=== PATIENT | male | born 1970 | race Caucasian/White ===

== ENCOUNTER → 2016-11-22 | Day surgery (SDC) | payer OTHER ==
[~2016-11-22] VITALS: Ht 161.3 cm; Wt 152.4 kg
[~2016-11-22] MED LIST: ADVIL200 MG PO; EXFORGE HCT 101 EAC2 PO; LOPRESSOR50 MG PO; PERCOCET 5-3251 EACH PO; THERA-VITE W/ B1 TAB PO
--- NOTE | ~2016-11-22 | OR ---
PATIENT'S NAME: MEL BRAUN [facility] AGE: 46 Y [address] ROOM: [place], [place] [address] LOCATION: [facility] [place] ADMIT DATE: 11/22/2016 OR/Procedure Report DISCHARGE DATE: FAMILY PHYSICIAN: Jean Hines ATTENDING PHYSICIAN: Elijah Jewell SURGEON: Elijah Jewell MD [employer]: DATE OF PROCEDURE: 11/22/2016 PREOPERATIVE DIAGNOSIS: Recurrent ventral hernia. POSTOPERATIVE DIAGNOSIS: Recurrent ventral hernia. PROCEDURE: 1. Robotic ventral hernia repair with mesh placement. 2. Explantation of previous mesh. 3. Excision of sebaceous cyst. FINDINGS: The patient had a main defect of approximately 8 cm. There were two other defects present just cephalad to this. In the left mid abdomen, the patient had complained of a sebaceous cyst as well. We ultimately excised this at the conclusion of the case. ESTIMATED BLOOD LOSS: 20 mL. COMPLICATIONS: None. INDICATIONS: The patient is a 46-year-old male, who presented with a very large ventral hernia. This was recurrent. He had previous mesh repair. We discussed his high-risk, high recurrence rates, the risks, benefits, and alternatives of excision as well as excision of the sebaceous cyst and he wished to proceed. DESCRIPTION OF PROCEDURE: The patient was taken to the operating room. He was placed supine. He was given IV sedation. Subsequently intubated. His abdomen was prepped with ChloraPrep and sterilely draped. Veress needle was inserted in the left upper quadrant followed by insertion of a trocar near this area. The camera was inserted. There was no injury from initial trocar placement. Two more trocars were positioned, one in the left mid abdomen and one in the left lower quadrant. These were both inserted under direct visualization. The left lower quadrant port was a 12 mm trocar. The robot was then docked. The operative field was targeted. A scissors and a grasper were inserted. Using both blunt dissection as well as electrocautery, we were able to reduce the contents of the hernia. This was a very large hernia sac. The hernia sac itself was greater than 20 cm in size. We could not easily PATIENT'S NAME: MEL BRAUN [facility] AGE: 46 Y [address] ROOM: [place], [place] [address] LOCATION: [facility] [place] ADMIT DATE: 11/22/2016 OR/Procedure Report DISCHARGE DATE: FAMILY PHYSICIAN: Jean Hines ATTENDING PHYSICIAN: Elijah Jewell reduce this hernia sac as it was nearly adherent to skin. In reducing the contents of the hernia, there was previous mesh present in this area. A portion of this was loose with minimal attachment to the abdominal wall. This mesh was excised. The hernia defects were all inferior to this previously placed mesh. There were sutures in the wall of this as well. The largest portion of the defect was approximately 8 cm with two other small defects just superior to this. There was suture closure of his previous hernia defect as well, which remained intact. The old mesh was brought out through the 12 mm trocar. Robotically using a # permanent V-Loc suture, we then closed the fascial defects in a running fashion. Once the defects were closed, we measured the size of the defect and selected a 20 cm x [address] hernia mesh. This was inserted through the 12 mm trocar and rolled, this was placed against the abdominal wall and sewn circumferentially around the edges of the mesh using. 2-0 V-Loc suture. This appeared to cover the defect and lie smoothly against the abdominal wall. Once this was completed, hemostasis was checked, had been obtained. The 12 mm trocar was removed and an Endo Close was used with 0 Vicryl suture to close the 12 mm port site. Pneumoperitoneum was released. The closure of the hernia defect was air tight and we did have to evacuate the air from the hernia sac using a Veress needle and a small stab incision. The skin edges were all closed with 4-0 Monocryl suture. Next, the sebaceous cyst was attended to, this was on the left abdominal wall as well. An incision was created overlying this, it was dissected around circumferentially. It was approximately 2 cm was consistent with sebaceous cyst. The entire capsule was able to be removed. The skin edges of this were then closed with a 4-0 Monocryl suture. Steri-Strips and sterile dressings were placed as well as compression dressing over the abdominal wound. The patient tolerated the procedure well. ELIJAH MD KRYSTA TELLEZ/modl /[id number] d: 11/22/162207 t: 11/29/16 112, OPERATIVE SUMMARY
[2016-11-22 07:06] LABS: BASOPHIL # 0.1 K/uL (0.0-0.2); BASOPHIL % 0.5 %; EOSINOPHIL # 0.7 K/uL (0.0-0.5); EOSINOPHIL % 5.3 %; HEMATOCRIT 46.4 % (37.0-53.0); HEMOGLOBIN 15.5 g/dL (12.0-17.0); IMMATURE GRANULOCYTE # 0.1 K/uL (0.0-0.3); IMMATURE GRANULOCYTE % 0.6 %; LYMPHOCYTE # 2.2 K/uL (0.8-4.0); LYMPHOCYTE % 17.1 %; MCH 30.3 pg (27.0-34.0); MCHC 33.4 gm/dL (32.0-36.5); MCV 90.6 fl (83.0-98.0); MONOCYTE # 0.8 K/uL (0.0-1.0); MONOCYTE % 5.9 %; MPV 10.8 fl (9.4-12.4); NEUTROPHIL % 70.6 %; NRBC % 0 /100WBC (0-0.00); PLATELET COUNT 332 K/uL (150-450); RBC 5.12 M/uL (4.00-6.00); RDW-CV 12.8 % (11.9-14.6); WBC 12.8 K/uL (4.0-11.0)
[2016-11-22 07:25] LABS: ALBUMIN 3.5 gm/dL (3.5-5.0); ALK PHOS 81 IU/L (33-138); ALT 27 IU/L (12-78); ANION GAP 12.6 (10.0-19.0); AST 14 IU/L (10-40); BLOOD UREA NITROGEN 12 mg/dL (6-24); CALCIUM 8.5 mg/dL (8.5-10.5); CHLORIDE 107 mMol/L (96-110); CO2 27 mMol/L (22-32); ESTIMATED GFR (MDRD EQUATION) > 60; POTASSIUM 3.6 mMol/L (3.7-5.1); SODIUM 143 mMol/L (135-145); TOTAL BILIRUBIN 0.6 mg/dL (0.0-1.5); TOTAL PROTEIN 6.9 g/dL (6.0-8.4)
--- NOTE | 2016-11-22 15:41 | NUR ---
1430 DR OLMOS IN TO SEE THE PT AND TALK WITH PT'S FAMILY. Reggie DOBBINS RN INFORMED DR FINN OF THE PT'S CONTINUAL NEED FOR 02 TO KEEP 02 SAO2 >90 EVEN WITH PT UP IN RECLINER, AMBULATED IN HARDEN, ICE CHIPS, COUGH AND DEEP BREATH. DR PENG INFORMS THE FAMILY THAT WE WILL CONTINUE TO OBSERVE FOR A FEW MORE HOURS. DR ROBERT ALSO HERE AND TALKED WITH PT AND DR FINN AND AWARE OF THE CONTINUAL NEED FOR O2 1530 PT PLACED ON RA AND SAO2 IMMEDIATELY DROPS TO 86-88%. INFORMED OT THAT HE MUST BE ABLE TO KEEP HIS SAO2>90 ON ROOM AIR. ENCOURAGED PT TO MOVE AROUND, COUGH, AND TAKE DEEP BREATHS AND TO USE THE INCENTIVE SPIROMETER FREQ TO HELP KEEP HIS SAO2 >90. PT IS VERY COMPILENT AND IS FREQ USING INCENTIVE SPIROMETER AND TAKING DEEP BREATH AND COUGHS. PT REPORTS HIS PAIN A 4/10 AND STATES IT IS TOLERABLE.
--- NOTE | 2016-11-22 15:48 | NUR ---
[id number] DR OLMOS AND DR Mary ROBERT MDA UPDATED ON PT'S CONDITION AND ASKED TO CONTINUE TO MONITOR THE PT... KEEPING SAO2 >90 REPORT TO Demetria JAIN RN
== END | disposition disaster alternative care site (69) ==
LOC: GPOC 11-15 10:00 → GSDC 05:50
PROVIDERS: Anesthesiology
PROC: 0WUF4JZ Supplement Abdominal Wall with Synthetic Substitute, Percutaneous Endoscopic Approach (ICD-10-PCS; principal; 2016-11-22)
PROC: 0WBFXZZ Excision of Abdominal Wall, External Approach (ICD-10-PCS; 2016-11-22)
DX: K43.2 Incisional hernia without obstruction or gangrene (principal); L72.3 Sebaceous cyst; I10 Essential (primary) hypertension; F17.200 Nicotine dependence, unspecified, uncomplicated; Z98.890 Other specified postprocedural states; Z79.899 Other long term (current) drug therapy
CPT/HCPCS: C1781; J0690; J1100; J2250; J2405; J2765; J3010; J7030; J7120